=== PATIENT | female | born 1985 | race Caucasian/White ===

== ENCOUNTER 2020-04-06 03:25 | Emergency (ER) | payer BC ==
[2020-04-06] MEDS ORDERED: TORAdol 30 mg Injection IM ONE (03:51)
--- NOTE | 2020-04-06 03:51 | ERPHSYRPT ---
- History of Present Illness Time Seen by Provider: 04/06/20 03:50 Source: patient Exam Limitations: no limitations Patient Subjective Stated Complaint: pt c/o back pain Triage Nursing Assessment: pt c/o low rt sided back pain which radiates to spine area. Pt states, "Pain comes and goes, has alot of spasms". Pt hurt her back 6 days ago lifting furniture. Pt has been using heat and ice, taking Tylenol and Aleve. Pt c/o numbness and tingling at times to back area. Physician History: Patient is a 34-year-old female presents to our ED with complaints of low back pain. Pain started approximately 6 days ago while she was lifting furniture. Patient has been managing pain with ice Tylenol and Aleve. Pain is been improving. Today she really exacerbated her pain. Pain described as an spasm- like sensation that is localized to the left lumbar paraspinal muscle. This pain comes and goes. Patient advised staff that she is currently on her menstrual period. No blunt trauma. Pain is well localized. No radiation to lower extremities. No lower extremity numbness tingling or weakness. No saddle anesthesia. No recent back procedure. No fevers. Patient otherwise healthy she voices no other complaints at this time. Timing/Duration: day(s) Method of Injury: bending Quality: cramping Back Pain Location: lumbar spine Severity of Pain-Max: moderate Severity of Pain-Current: mild Modifying Factors: Improves With: movement Associated Symptoms: muscle spasms, No fever, No chills, No sweating, No urinary incontinence, No loss of bowel control, No constipation, No nausea, No vomiting, No problems urinating, No light-headedness, No dizziness, No numbness in legs/feet, No weakness, No sensory/motor loss, No tingling in legs/feet Previous symptoms: no prior history Allergies/Adverse Reactions: No Known Drug Allergies Allergy (Unverified 04/06/20 03:42) Hx Tetanus, Diphtheria Vaccination/Date Given: Yes Hx Influenza Vaccination/Date Given: Yes Hx Pneumococcal Vaccination/Date Given: No Immunizations Up to Date: Yes Travel Risk - International Travel Have you traveled outside of the country in past 3 weeks: No - Coronavirus Screening Are you exhibiting any of the following symptoms?: No Close contact with a COVID-19 positive Pt in past 14-21 Days: No - Review of Systems Constitutional: No Symptoms, No Fever, No Chills Eyes: No Symptoms Ears, Nose, & Throat: No Symptoms Respiratory: No Symptoms, No Cough, No Dyspnea Cardiac: No Symptoms, No Chest Pain, No Edema, No Syncope Abdominal/Gastrointestinal: No Symptoms, No Abdominal Pain, No Nausea, No Vomiting, No Diarrhea Genitourinary Symptoms: No Symptoms, No Dysuria Musculoskeletal: No Symptoms, No Back Pain, No Neck Pain Skin: No Symptoms, No Rash Neurological: No Symptoms, No Dizziness, No Focal Weakness, No Sensory Changes Psychological: No Symptoms Endocrine: No Symptoms Hematologic/Lymphatic: No Symptoms Immunological/Allergic: No Symptoms All Other Systems: Reviewed and Negative - Past Medical History Pertinent Past Medical History: Yes Neurological History: No Pertinent History ENT History: No Pertinent History Cardiac History: No Pertinent History Respiratory History: No Pertinent History Endocrine Medical History: No Pertinent History Musculoskeletal History: No Pertinent History GI Medical History: Gallbladder Disease History: No Pertinent History Psycho-Social History: No Pertinent History Female Reproductive Disorders: No Pertinent History - Past Surgical History Past Surgical History: Yes Neuro Surgical History: No Pertinent History Cardiac: No Pertinent History Respiratory: No Pertinent History Gastrointestinal: Cholecystectomy Genitourinary: No Pertinent History Musculoskeletal: No Pertinent History Female Surgical History: No Pertinent History - Social History Smoking Status: Never smoker Exposure to second hand smoke: No Drug Use: none Patient Lives Alone: No - Female History Hx Last Menstrual Period: 04/06/20 Hx Now: No - Nursing Vital Signs Nursing Vital Signs: Initial Vital Signs Temperature 97.8 F 04/06/20 03:33 Pulse Rate 102 H 04/06/20 03:33 Respiratory Rate 22 04/06/20 03:33 Blood Pressure 144/102 04/06/20 03:33 O2 Sat by Pulse Oximetry 97 04/06/20 03:33 Pain Scale Pain Intensity [] 10 Pain Intensity 8 - Physical Exam General Appearance: no apparent distress, alert Eye Exam: PERRL/EOMI, eyes nml inspection Neck Exam: normal inspection, non-tender, supple, full range of motion, No meningismus, No midline tenderness Respiratory Exam: normal breath sounds, lungs clear, airway intact, No respiratory distress Cardiovascular Exam: regular rate/rhythm, normal heart sounds Gastrointestinal Exam: soft, No tenderness, No mass Pelvic Exam: not done Rectal Exam: deferred Back Exam: normal inspection, muscle spasm (Pain over the right sacroiliac joint. Range of motion limited due to pain.), point tenderness Extremity Exam: normal inspection, normal range of motion, No calf tenderness, No pedal edema Neurologic Exam: alert, oriented x 3, cooperative, etcher aircraft II-XII nml as tested, normal mood/affect, nml station & gait, sensation nml, No motor deficits Skin Exam: normal color, warm, dry, No rash Lymphatic Exam: No adenopathy SpO2 Interpretation: normal SpO2: 97 O2 Delivery: Room Air - Course Nursing assessment & vital signs reviewed: Yes - Radiology Exams L-Spine X-ray Interpretation: Interpreted by me (NO fracture or dislocations. ) Ordered Tests: Active Orders 24 hr Category Date Time Status LUMBAR LIMITED (2 OR 3 VIEWS) Stat Exams 04/06/20 04:13 Taken CULTURE,URINE Stat Lab 04/06/20 04:40 Received UA W/RFX UR CULTURE Stat Lab 04/06/20 04:40 Completed Medication Summary Discontinued Medications Generic Name Dose Route Start Last Admin Trade Name Jose Eliasq PRN Reason Stop Dose Admin Acetaminophen 975 mg 04/06/20 03:53 04/06/20 04:03 Tylenol 325 Mg PO 04/06/20 03:54 975 mg STAT STA Administration Acetaminophen Confirm 04/06/20 04:01 Tylenol 325 Mg Administered 04/06/20 04:02 Dose 975 mg .ROUTE .STK-MED ONE Ketorolac Tromethamine 30 mg 04/06/20 03:51 04/06/20 04:06 Toradol 30 Mg Injection IM 04/06/20 03:52 30 mg STAT ONE Administration Ketorolac Tromethamine Confirm 04/06/20 04:01 Toradol 30 Mg Injection Administered 04/06/20 04:02 Dose 30 mg .ROUTE .STK-MED ONE Lab/Rad Data: Laboratory Results 04/06/20 Range/Units 04:40 Urine Color YELLOW (YELLOW) Urine Appearance CLOUDY (CLEAR) Urine pH 5.0 (5-6) Ur Specific [place] 1.013 (1.005-1.025) Urine Protein NEGATIVE (Negative) Urine Ketones NEGATIVE (NEGATIVE) Urine Blood LARGE (0-5) Abhinav/ul Urine Nitrite NEGATIVE (NEGATIVE) Urine Bilirubin NEGATIVE (NEGATIVE) Urine Urobilinogen NORMAL (0-1) mg/dL Ur Leukocyte Esterase SMALL (NEGATIVE) Urine WBC (Auto) 0-2 (0-5) /HPF Urine RBC (Auto) 3-5 (0-2) /HPF U Hyaline Cast (Auto) 0-2 (0-2) /LPF U Epithel Cells (Auto) FEW (FEW) /HPF Urine Bacteria (Auto) FEW (NEGATIVE) /HPF Urine Mucus (Auto) SLIGHT (NEGATIVE) /HPF Urine Culture Reflexed YES (NO) Urine Glucose NEGATIVE (NEGATIVE) mg/dL - Progress Progress: improved Progress Note: 04/06/20 05:13 Patient reassessed. Pain improved. X-ray negative for acute fracture dislocation. No acute pathology on lumbar spine x-ray. UA negative for UTI. There is blood in the urinalysis however, patient is currently on her menstrual period. Patient states she is ready for discharge. She voiced no other complaints at this time. Will discharge patient home. Patient agrees to follow-up with her primary care doctor within 48 hours for reevaluation. Patient advised to try SI joint belt for comfort. 04/06/20 05:26 Counseled pt/family regarding: diagnosis, need for follow-up, rad results - Departure Departure Disposition: Home Clinical Impression: Lumbosacral strain, Muscle spasm, Disorder of SI (sacroiliac) joint Condition: Stable Critical Care Time: No Referrals: SRIDHAR WALLACE [Primary Care Provider] - Additional Instructions: Discharge/Care Plan TURNER ZHU was seen on 04/06/20 in the Emergency Room. The patient was counseled regarding Diagnosis,Lab results, Imaging studies, need for follow up and when to return to the Emergency Room. Prescriptions given: Discharge Note I have spoken with the patient and/or caregivers. I have explained the patient's condition, diagnosis and treatment plan based on the information available to me at this time. I have answered the patient's and/or caregiver's questions and addressed any concerns. The patient and/or caregivers have as good understanding of the patient's diagnosis, condition and treatment plan as can be expected at this point. The vital signs have been stable. The patient's condition is stable and appropriate for discharge from the emergency department. The patient will pursue further outpatient evaluation with the primary care physician or other designated or consulting physician as outlined in the discharge instructions. The patient and/or caregivers are agreeable to this plan of care and follow-up instructions have been explained in detail. The patient and/or caregivers have received these instruction. The patient/and or caregivers are aware that any significant change in condition or worsening of symptoms should prompt an immediate return to this or the closest emergency department or call 911. Prescriptions: Ketorolac Tromethamine [Toradol] 10 mg PO TID 5 Days #15 tablet
[2020-04-06] MEDS ORDERED: TYLENOL 325 MG PO STA (03:53)
[2020-04-06] MEDS ORDERED: TYLENOL 325 MG ONE (04:01)
[2020-04-06] MEDS ORDERED: TORAdol 30 mg Injection ONE (04:01)
[2020-04-06 04:55] LABS: Appearance CLOUDY (CLEAR)
[2020-04-06 04:56] LABS: Bilirubin NEGATIVE (NEGATIVE); Blood LARGE Ery/ul (0-5); Epithelial Cells FEW /HPF (FEW); Glucose NEGATIVE (NEGATIVE); Ketones NEGATIVE (NEGATIVE); Leukocyte Esterase SMALL (NEGATIVE); Mucus SLIGHT /HPF (NEGATIVE); Nitrite NEGATIVE (NEGATIVE); Protein,Urine Dip NEGATIVE (Negative); Specific Gravity 1.013 (1.005-1.025); Urobilinogen NORMAL mg/dL (0-1); WBC 0-2 /HPF (0-5)
[2020-04-06 04:57] LABS: Bacteria FEW /HPF (NEGATIVE); Hyaline Casts 0-2 /LPF (0-2)
[2020-04-06 05:35] VITALS: BP 151/93; PULSE 70; O2SAT 98
--- NOTE | 2020-04-06 08:45 | XRAY ---
Indication: Low back pain following lifting injury one week ago. Comparison: None 3 view lumbar spine demonstrates 5 lumbar vertebral segments in normal alignment with minimal multilevel thoracolumbar endplate spurring. Vertebral body heights/disc spaces maintained. No acute fracture, subluxation, or suspicious bony lesions. Incidental cholecystectomy clips. Impression: Nonacute lumbar spine with chronic features.
== END 2020-04-06 05:38 | disposition home or self-care (01) ==
LOC: ED 03:25
DX: S39.012A Strain of muscle, fascia and tendon of lower back, initial encounter (principal); M62.830 Muscle spasm of back; M53.3 Sacrococcygeal disorders, not elsewhere classified
CPT/HCPCS: 72100; 81001; 87086; 96372; 99284; J1885; A9270-GY